=== PATIENT | female | born 1995 | race Caucasian/White ===

== ENCOUNTER 2018-11-21 14:10 | Emergency (ER) | payer OTHER ==
[~2018-11-21] VITALS: Ht 160 cm; Wt 68.0 kg
[~2018-11-21 14:10] MED LIST: ACETAMINOPHEN-1 EAC1 PO; ACTICIN 5% CREA60 G1 TOP; ALLEGRA-D 24 H1 EACH PO; BACTRIM DS TAB1 EACH PO; CELEXA20 MG PO; DARVOCET-N 1001 EAC1 PO; NAPROSYN500 MG PO; NOHOMEMEDICATIONS; PYRIDIUM100 MG PO
[2018-11-21] MEDS ORDERED: HYDROXYZINE HCL25 M1 PO (14:43)
[2018-11-21] MEDS ORDERED: NICOTINE TRANSD14 M1 TRANSDERM (14:43)
[2018-11-21 14:54] VITALS: BP 118/62
== END 2018-11-21 14:55 | disposition home or self-care (01) ==
LOC: M.ERS 14:10
DX: F41.9 Anxiety disorder, unspecified (principal); R06.02 Shortness of breath; F17.210 Nicotine dependence, cigarettes, uncomplicated; Z86.018 Personal history of other benign neoplasm

== ENCOUNTER 2019-03-23 12:56 | Emergency (ER) | payer MEDICAID ==
[~2019-03-23] VITALS: Ht 175.3 cm; Wt 60.8 kg
[~2019-03-23 12:56] MED LIST changes: +HYDROXYZINE HCL25 M1 PO; +NICOTINE TRANSD14 M1 TRANSDERM
[2019-03-23 12:57] VITALS: BP 131/59
[2019-03-23] MEDS ORDERED: BLEPH-105 ML OPHTHALMIC (13:24)
== END 2019-03-23 13:34 | disposition home or self-care (01) ==
LOC: M.ERS 12:56
DX: H10.9 Unspecified conjunctivitis (principal); F17.210 Nicotine dependence, cigarettes, uncomplicated

== ENCOUNTER 2019-03-25 09:20 | Emergency (ER) | payer MEDICAID ==
[~2019-03-25] VITALS: Ht 160 cm; Wt 59.0 kg
[~2019-03-25 09:20] MED LIST changes: +BLEPH-105 ML OPHTHALMIC
[2019-03-25] MEDS ORDERED: CIPROFLOXIN HC2.5 M1 OPHTHALMIC (10:38)
[2019-03-25 10:46] VITALS: BP 120/70
== END 2019-03-25 10:46 | disposition home or self-care (01) ==
LOC: M.ERS 09:20
DX: S05.01XA Injury of conjunctiva and corneal abrasion without foreign body, right eye, initial encounter (principal); H10.9 Unspecified conjunctivitis; F17.210 Nicotine dependence, cigarettes, uncomplicated; X58.XXXA Exposure to other specified factors, initial encounter; Y93.89 Activity, other specified; Y92.89 Other specified places as the place of occurrence of the external cause; Y99.8 Other external cause status

== ENCOUNTER 2019-04-30 19:21 | Emergency (ER) | payer MEDICAID ==
[~2019-04-30] VITALS: Ht 160 cm; Wt 68.0 kg
[~2019-04-30 19:21] MED LIST changes: +CIPROFLOXIN HC2.5 M1 OPHTHALMIC
[2019-04-30 19:33] VITALS: BP 119/71
[2019-04-30] MEDS ORDERED: IBUPROFEN 600600 M1 PO (19:35)
[2019-04-30] MEDS ORDERED: AMOXICILLIN (19:37)
[2019-04-30] MEDS ORDERED: NORCO 5-325 TA1 EAC1 PO (20:10)
== END 2019-04-30 20:18 | disposition home or self-care (01) ==
LOC: M.ERS 19:21
DX: K02.9 Dental caries, unspecified (principal); F17.210 Nicotine dependence, cigarettes, uncomplicated

== ENCOUNTER 2019-11-29 09:56 | Emergency (ER) | payer OTHER ==
[~2019-11-29] VITALS: Ht 160 cm; Wt 59.0 kg
[~2019-11-29 09:56] MED LIST changes: +AMOXICILLIN; +IBUPROFEN 600600 M1 PO; +NORCO 5-325 TA1 EAC1 PO
[2019-11-29] MEDS ORDERED: DESYREL150 MG PO (10:09)
[2019-11-29] MEDS ORDERED: MEDROLDOSEPACK PO (11:22)
[2019-11-29] MEDS ORDERED: CYCLOBENZAPRINE5 MG PO (11:22)
[2019-11-29] MEDS ORDERED: TORADOL 10 MG T10 MG PO (11:22)
[2019-11-29 11:42] VITALS: BP 121/74
== END 2019-11-29 11:35 | disposition home or self-care (01) ==
LOC: M.ERS 09:56
DX: G56.03 Carpal tunnel syndrome, bilateral upper limbs (principal); M62.830 Muscle spasm of back; F17.210 Nicotine dependence, cigarettes, uncomplicated